=== PATIENT | female | born 1940 | race Caucasian/White ===

== ENCOUNTER 2019-10-01 09:44 | Emergency (ER) | payer MEDICARE ==
[~2019-10-01] VITALS: Ht 149.9 cm; Wt 82.6 kg
--- NOTE | 2019-10-01 09:45 | NUR ---
Patient to ER bed 6 to gown for evaluation. Side rails up.
[2019-10-01 09:50] VITALS: BP_SYST 147
--- NOTE | 2019-10-01 10:13 | NUR ---
Patient BIB ACLS for syncopal episode. Patient A&Ox4, afebrile, occipital hematoma, bleeding controlled, pain 11/11, denies n/v/d at this time. Patient states she was making breakfast at home, had sudden onset dizziness & weakness, fall.
[2019-10-01 10:23] LABS: BASOPHILS % (AUTO) 0.7 % (0.0-2.0); EOSINOPHILS # (AUTO) 0.2 K/uL (0.0-0.4); EOSINOPHILS % (AUTO) 3.2 % (0.0-4.0); HEMATOCRIT 40.4 % (36-48); HEMOGLOBIN 13.8 g/dL (12.0-16.0); LYMPHOCYTES % (AUTO) 18.1 % (20.5-51.5); MEAN CORPUSCULAR HEMOGLOBIN 29 pg (27-31); MEAN CORPUSCULAR HGB CONC 34 % (32-36); MEAN CORPUSCULAR VOLUME 85 fL (79.0-98.0); MONOCYTES # (AUTO) 0.4 K/uL (0.0-1.0); NEUTROPHILS # (AUTO) 3.8 K/uL (1.8-7.7); PLATELET COUNT (AUTO) 187 K/uL (130-430); RED BLOOD CELL COUNT(AUTO) 4.73 MIL/uL (4.2-6.2); RED CELL DISTRIBUTION WIDTH 13.8 % (9.0-15.0); WHITE BLOOD COUNT (AUTO) 5.3 K/uL (4.8-10.8)
--- NOTE | 2019-10-01 10:35 | NUR ---
Patient has a 2.5 cm laceration to OCCIPUT . Dr. TEJEDA applied 10 ELVER using sterile technique. Edges well approximated. Site cleansed with STERILE WATER . No bleeding noted. Pt tolerated well.
[2019-10-01 10:40] LABS: ANION GAP 7 (5-15); CHLORIDE 106 mmol/L (98-107); CREATININE 0.85 mg/dL (0.55-1.30); GLUCOSE 149 mg/dL (70-99); POTASSIUM 4.1 mmol/L (3.5-5.1); SODIUM SERUM 139 mmol/L (136-145); UREA NITROGEN, BLOOD 17 mg/dL (8-21)
[2019-10-01 10:48] LABS: ALANINE AMINOTRANSFERASE 23 U/L (12-78); ALBUMIN 3.6 g/dL (3.4-4.8); ASPARTATE AMINOTRANSFERASE 20 U/L (10-37); TOTAL BILIRUBIN 0.8 mg/dL (0.0-1.0)
--- NOTE | 2019-10-01 11:37 | NUR ---
PATIENT AWAKE IN [facility] A&OX4
--- NOTE | 2019-10-01 12:03 | NUR ---
Patient awake, complete linen change & stephania care.
--- NOTE | 2019-10-01 12:05 | NUR ---
Urine specimen collected and sent to lab.
[2019-10-01 12:25] LABS: BILIRUBIN,URINE NEGATIVE (NEGATIVE); BLOOD, URINE 1+ (NEGATIVE); CLARITY/URINE SL CLOUDY (CLEAR); COLOR,URINE YELLOW (YELLOW); GLUCOSE,URINE NEGATIVE (NEGATIVE); KETONES,URINE NEGATIVE (NEGATIVE); LEUKOCYTE ESTERASE ,URINE 1+ (NEGATIVE); NITRITE, URINE NEGATIVE (NEGATIVE); PH,URINE 5.5 (5.0-8.0); PROTEIN URINE TRACE (NEGATIVE); UROBILINOGEN,URINE 0.2 (0.2-1.0)
[2019-10-01 12:50] LABS: BACTERIA,URINE MANY /HPF (None Seen)
--- NOTE | 2019-10-01 13:15 | NUR ---
Dr. Stout, [place] [facility] Doc, paged back to speak to Dr. Weinstein regarding pt status.
[2019-10-01] MEDS ORDERED: LEVOFLOXACIN 500 MG/D5W 100 ML IV ONE (13:30)
[2019-10-01] MEDS ORDERED: NACL 0.9% 1,000 ML IV ONE (13:30)
[2019-10-01] MEDS ORDERED: KETOROLAC TROMETHAMINE 30 MG VIAL IVP ONE (13:45)
--- NOTE | 2019-10-01 13:50 | NUR ---
Patient in [facility] A&Ox4, c/o dizziness. Made Dr. Weinstein aware
--- NOTE | 2019-10-01 14:03 | NUR ---
TRANSFER INFO [facility] ACCEPTING: DR. CASSIDY REPORT: [phone] ALS ETA 1500 SPOKE TO 1500
--- NOTE | 2019-10-01 14:20 | NUR ---
# 20 gauge angiocath placed to RIGHT WRIST . Use of asceptic technique. Opsite placed over site. Blood return noted. Blood for lab drawn from site. Flushed with 10 cc of normal saline. No evidence of infiltration noted. Patient tolerated well.
[2019-10-01 14:59] VITALS: BP_SYST 188
--- NOTE | 2019-10-01 15:02 | NUR ---
Patient to be transferred to [facility]. Is being transferred due to higher level of care. Receiving facility has accepting physician and available space. ER physician has signed transfer form. Patient or responsible republican has agreed to transfer and signed form. Patient belongings inventoried and will be sent with patient. Copy of nursing notes, lab reports, EKG, Physicians Orders and X-rays to be sent with patient. Report called to [facility] ER at receiving facility. Receiving physician is DR. CASSIDY . [facility] ambulance service has been called for transfer. ETA is 1500 .
== END 2019-10-01 15:02 | disposition short-term general hospital (02) ==
LOC: SED 09:44
DX: S01.01XA Laceration without foreign body of scalp, initial encounter (principal); J45.909 Unspecified asthma, uncomplicated; R55 Syncope and collapse; N39.0 Urinary tract infection, site not specified; I10 Essential (primary) hypertension; Z86.73 Personal history of transient ischemic attack (TIA), and cerebral infarction without residual deficits; Z90.710 Acquired absence of both cervix and uterus; W22.8XXA Striking against or struck by other objects, initial encounter; Y93.89 Activity, other specified; Y92.090 Kitchen in other non-institutional residence as the place of occurrence of the external cause; Y99.8 Other external cause status
CPT/HCPCS: 12001; 36415; 70450; 71045; 72125; 80053; 81000; 84484; 85025; 87086; 93005; 96365; 96375; 99285; J1885; J1956; J7030

== ENCOUNTER 2023-04-12 07:03 | Emergency (ER) | payer MEDICARE ==
[~2023-04-12] VITALS: Ht 147.3 cm; Wt 79.8 kg
[2023-04-12 07:15] VITALS: BP_SYST 130; BP_SYST 167; PULSE 72; PULSE 83; RESP 18; TEMP 97.8; TEMP 98.6; O2SAT 97
[2023-04-12] MEDS ORDERED: OXYCODONE/ACETAMINOPHEN 5-325 TABLET PO ONE (07:45)
[2023-04-12 09:59] VITALS: BP_SYST 163; PULSE 85; RESP 22; TEMP 98.6; O2SAT 94
== END 2023-04-12 09:59 | disposition home or self-care (01) ==
LOC: SED 07:03
DX: S83.91XA Sprain of unspecified site of right knee, initial encounter (principal); S43.401A Unspecified sprain of right shoulder joint, initial encounter; I10 Essential (primary) hypertension; J45.909 Unspecified asthma, uncomplicated; Z88.5 Allergy status to narcotic agent; W01.0XXA Fall on same level from slipping, tripping and stumbling without subsequent striking against object, initial encounter; Y93.89 Activity, other specified; Y92.89 Other specified places as the place of occurrence of the external cause; Y99.8 Other external cause status
CPT/HCPCS: 73030; 73564; 99284